=== PATIENT | male | born 1950 | race African-American/Black ===

== ENCOUNTER 2025-02-11 14:10 | Inpatient (IN) | payer OTHER ==
[2025-02-11] MEDS ORDERED: ALBUTEROL SO4 2.5/IPRATROPIUM 0.5 INH SOL 3 ML VIAL.NEB. NEB ONE ×2 (15:22→17:24)
[2025-02-11] MEDS ORDERED: FAMOTIDINE 10 MG TABLET ONE (15:22)
[2025-02-11] MEDS: FAMOTIDINE 10 MG TABLET PO ONE (15:26)
[2025-02-11] MEDS: ALBUTEROL SO4 2.5/IPRATROPIUM 0.5 INH SOL 3 ML VIAL.NEB. NEB ONE ×2 (15:27→17:31)
[2025-02-11 16:15] LABS: ABSOLUTE IMMATURE GRANULOCYTES 0.02 x10^3/uL (0.0-0.031); BASOPHILS # 0.04 x10^3/uL (0.01-0.08); EOSINOPHIL % 1.5 % (0.8-7.0); EOSINOPHILS # 0.12 x10^3/uL (0.04-0.54); MCHC 32.4 g/dl (32.3-36.5); MEAN CELL VOLUME 102.2 fl (79.0-92.2); MEAN PLT VOLUME 9.4 fl (9.4-12.4); MONOCYTE # 0.64 x10^3/uL (0.30-0.82); MONOCYTE % 7.9 % (5.3-12.2); RDW 12.0 % (12.2-16.6)
[2025-02-11 16:26] LABS: INR 1.46 (0.83-1.09); PROTHROMBIN TIME (PATIENT) 16.1 SEC (9.7-13.0)
[2025-02-11 16:29] LABS: ACTIVATED PTT 37.2 SECONDS (25.2-36.5)
[2025-02-11 16:42] LABS: URINE APPEARANCE CLEAR; URINE BILIRUBIN NEGATIVE (NEGATIVE); URINE COLOR YELLOW; URINE GLUCOSE (UA) 3+ (NEGATIVE); URINE KETONE NEGATIVE (NEGATIVE); URINE LEUK ESTERASE NEGATIVE (NEGATIVE); URINE NITRITE NEGATIVE (NEGATIVE); URINE PROTEIN NEGATIVE (NEGATIVE); URINE UROBILINOGEN 0.2 mg/dL (0.2-1.0)
[2025-02-11 16:55] LABS: CO2 30.0 mmol/L (21-32); GLUCOSE,RANDOM 116.0 mg/dL (74-106)
[2025-02-11 16:58] LABS: CREATININE 1.2 mg/dL (0.55-1.3); SGOT/AST 28.0 U/L (15-37); SGPT/ALT 31.0 U/L (13-61)
[2025-02-11 17:00] LABS: TOT PROT 6.9 g/dl (6.4-8.2)
[2025-02-11 17:01] LABS: ALK PHOS 112.0 U/L (45-117)
[2025-02-11] MEDS ORDERED: methylPREDNISolone NA SUCC 125 MG/2 ML VIAL ONE (17:24)
[2025-02-11] MEDS: methylPREDNISolone NA SUCC 125 MG/2 ML VIAL IVPUSH ONE (17:31)
[2025-02-11 18:55] LABS: HIV INTERPRETATION NEGATIVE (NEGATIVE)
[2025-02-11 19:04] LABS: HCV DIAGNOSTIC IN-HOUSE W/RFLX REACTIVE (NONREACTIVE)
[2025-02-11] MEDS ORDERED: ALBUTEROL SO4 2.5/IPRATROPIUM 0.5 INH SOL 3 ML VIAL.NEB. NEB PRN (22:17)
[2025-02-11] MEDS: ALBUTEROL SO4 2.5/IPRATROPIUM 0.5 INH SOL 3 ML VIAL.NEB. NEB SCH (22:26)
[2025-02-11] MEDS: methylPREDNISolone NA SUCC 40 MG/1 ML VIAL IVPUSH SCH (22:26)
[2025-02-11] MEDS: FAMOTIDINE 10 MG TABLET PO SCH (22:26)
[2025-02-11 23:22] LABS: N-TERMINAL BNP 1357.3 pg/ml (5-450)
[2025-02-11] MEDS: CARVEDILOL 6.25 MG TABLET (FP) PO SCH (23:51)
[2025-02-11] MEDS: MELATONIN 1 MG TABLET PO SCH (23:51)
[2025-02-12 07:28] LABS: MCHC 32.5 g/dl (32.3-36.5); MEAN CELL VOLUME 101.7 fl (79.0-92.2); MEAN PLT VOLUME 10.0 fl (9.4-12.4); RDW 12.0 % (12.2-16.6)
[2025-02-12 07:50] LABS: CO2 26.0 mmol/L (21-32)
[2025-02-12 07:51] LABS: GLUCOSE,RANDOM 132.0 mg/dL (74-106)
[2025-02-12 07:53] LABS: SGOT/AST 20.0 U/L (15-37); SGPT/ALT 27.0 U/L (13-61)
[2025-02-12 07:54] LABS: CREATININE 1.1 mg/dL (0.55-1.3)
[2025-02-12 07:55] LABS: TOT PROT 6.4 g/dl (6.4-8.2)
[2025-02-12 07:56] LABS: ALK PHOS 92.0 U/L (45-117)
[2025-02-12] MEDS: ALBUTEROL SO4 2.5/IPRATROPIUM 0.5 INH SOL 3 ML VIAL.NEB. NEB SCH (08:14)
[2025-02-12] MEDS ORDERED: ENOXAPARIN NA (PORCINE) 40 MG/0.4 ML DISP.SYRIN SQ SCH (10:00)
[2025-02-12] MEDS: FAMOTIDINE 10 MG TABLET PO SCH (11:05)
[2025-02-12] MEDS: FUROSEMIDE 40 MG TABLET (FP) PO SCH (11:05)
[2025-02-12] MEDS: APIXABAN 5 MG TABLET PO SCH (11:05)
[2025-02-12] MEDS: methylPREDNISolone NA SUCC 40 MG/1 ML VIAL IVPUSH SCH (11:05)
[2025-02-12] MEDS: SPIRONOLACTONE 25 MG TABLET PO SCH (11:05)
[2025-02-12] MEDS: SACUBITRIL/VALSARTAN 24 MG-26 MG TABLET PO SCH (11:06)
[2025-02-12] MEDS: EMPAGLIFLOZIN (JARDIANCE) 10 MG TABLET PO SCH (11:06)
[2025-02-12] MEDS: ASPIRIN 81 MG CHEWABLE TABLETS PO SCH (11:06)
[2025-02-12] MEDS: BUDESONIDE/FORMETEROL FUMARATE 160/4.5 mcg INHALER IH SCH (11:07)
[2025-02-12 14:23] LABS: LDL CHOLESTEROL (ONLY SJRH) 90.0 mg/dL (5-100)
[2025-02-12] MEDS: POLYETHYLENE GLYCOL (HEALTHYLAX) 3350 17 GM PACKET PO ONE (21:02)
[2025-02-12] MEDS: SENNOSIDES 8.6MG TABLET (FP) PO SCH (21:03)
[2025-02-13] MEDS: ACETAMINOPHEN 325 MG TABLET (FP) PO PRN (00:37)
[2025-02-13 04:26] VITALS: RESP 18
[2025-02-13] MEDS: predniSONE 20 MG TABLET (UD) PO SCH (09:49)
[2025-02-13 14:20] VITALS: BMI 18.6
[2025-02-13] MEDS: MAG HYDROX/AL HYDROX/SIMETH 30 ML UNIT-DOSE CUP PO ONE (14:50)
[2025-02-14 13:18] VITALS: BP 126/74; PULSE 71; TEMP 99.9
== END 2025-02-14 11:31 | DRG 190 ==
LOC: JER 14:10 → JERBED 19:48 → J4W 23:17
PROVIDERS: ADMIT Internal Medicine; ATTEND Internal Medicine
DX: J44.1 Chronic obstructive pulmonary disease with (acute) exacerbation (principal); E43 Unspecified severe protein-calorie malnutrition; I50.22 Chronic systolic (congestive) heart failure; F11.20 Opioid dependence, uncomplicated; F14.20 Cocaine dependence, uncomplicated; Z68.1 Body mass index [BMI] 19.9 or less, adult; I11.0 Hypertensive heart disease with heart failure; E11.9 Type 2 diabetes mellitus without complications; I48.91 Unspecified atrial fibrillation; I25.10 Atherosclerotic heart disease of native coronary artery without angina pectoris; Z95.5 Presence of coronary angioplasty implant and graft; K29.70 Gastritis, unspecified, without bleeding
CPT/HCPCS: 36415; 71045-TC-FY; 71275-TC; 80053; 80061; 81003; 82607; 82746; 83036; 83735; 83880; 84100; 84439; 84443; 84484; 85025; 85027; 85379; 85610; 85730; 86803; 86850; 86900; 86901; 87077; 87086; 87389; 87522; 87637-QW; 93005; 93010; 93306-TC; 94640; 97116-GP; 97162-GP; 99285-25; Q9967